=== PATIENT | female | born 1990 | race Caucasian/White ===

== ENCOUNTER → 2018-08-17 | Outpatient (CLI) | payer BC ==
[~2018-08-17] MED LIST: NO HOME MEDICATIONS
== END ==
LOC: BHSO 11:02
DX: F31.81 Bipolar II disorder (principal)

== ENCOUNTER → 2018-10-18 | Outpatient (CLI) | payer BC | LOC: BHSO 14:57 | DX: F31.81 Bipolar II disorder (principal) | CPT/HCPCS: G0463 ==

== ENCOUNTER 2021-03-27 13:34 | Outpatient (RCR) | payer OTHER | END 2021-03-28 | disposition still patient (30) | LOC: WSOH | DX: Z77.21 Contact with and (suspected) exposure to potentially hazardous body fluids (principal); W46.0XXA Contact with hypodermic needle, initial encounter; E03.9 Hypothyroidism, unspecified; F41.8 Other specified anxiety disorders; F90.9 Attention-deficit hyperactivity disorder, unspecified type; M32.9 Systemic lupus erythematosus, unspecified; Y99.0 Civilian activity done for income or pay ==

== ENCOUNTER → 2021-08-30 | Outpatient (CLI) | payer OTHER ==
[2021-08-30 08:30] LABS: ALBUMIN 4.1 gm/dL (3.5-5.0); BILIRUBIN,TOTAL 0.6 mg/dL (0.2-1.2); CALCIUM 9.1 mg/dL (8.4-10.2); CHOLESTEROL RISK RATIO 4.6; CREATININE, serum 0.85 mg/dL (0.57-1.11); PROLACTIN 46.8 ng/mL (5.18-26.53); TOTAL PROTEIN 7.1 gm/dL (6.2-8.1)
== END ==
LOC: ZCOL.LAB 06:46
PROVIDERS: Psychiatry & Neurology Psychiatry
DX: F31.81 Bipolar II disorder (principal)

== ENCOUNTER → 2021-10-22 | Outpatient (CLI) | payer OTHER | LOC: ZCOL.LAB 04:39 | DX: F31.9 Bipolar disorder, unspecified (principal) ==

== ENCOUNTER → 2021-12-17 | Outpatient (CLI) | payer OTHER ==
[2021-12-17 07:24] LABS: COLLECTION METHOD CLEAN CATCH
[2021-12-17 07:25] LABS: ALBUMIN 4.2 gm/dL (3.5-5.0); BILIRUBIN,DIRECT 0.4 mg/dL (0.0-0.5); BILIRUBIN,TOTAL 0.9 mg/dL (0.2-1.2); C-REACTIVE PROTEIN 0.03 mg/dL (0.00-0.50); CALCIUM 9.3 mg/dL (8.4-10.2); CREATININE, serum 0.98 mg/dL (0.57-1.11); MAGNESIUM 2.1 mg/dL (1.6-2.6); POTASSIUM 3.4 mmol/L (3.5-4.5); THYROID STIMULATING HORMONE 0.786 uIU/mL (0.350-4.940); TOTAL PROTEIN 7.1 gm/dL (6.2-8.1)
[2021-12-17 07:26] LABS: BASO # 0.1 K/mm3 (0.0-0.2); BASO % 0.9 % (0.0-2.0); EOS # 0.2 K/mm3 (0.0-0.7); EOS % 3.7 % (0.0-4.0); GRAN # 2.7 K/mm3 (1.4-6.5); GRAN % 47.6 % (42.2-75.2); HEMATOCRIT 40.2 % (37.0-47.0); HEMOGLOBIN 13.6 g/dl (12.5-16.0); LYMPH % 35.8 % (20.0-51.0); MEAN CELL VOLUME 92 fl (80.0-100.0); MEAN CORPUSCULAR HEMOGLOBIN 31 pg (27-31); MEAN CORPUSCULAR HGB CONC 34 g/dl (33.0-37.0); MEAN PLATELET VOLUME 10.4 fl (7.4-10.4); MONO # 0.7 K/mm3 (0.1-0.6); MONO % 11.8 % (1.7-9.3); PLATELET COUNT 265 K/mm3 (130-400); RED BLOOD COUNT 4.36 M/mm3 (4.10-5.30); REDCELL DISTRIBUTION WIDTH-CV 12.2 % (11.5-14.5)
[2021-12-17 07:27] LABS: MONOSCREEN NEGATIVE
[2021-12-17 07:28] LABS: MUCOUS Present (NOT PRESENT); SQUAMOUS EPITHELIAL 0-2 /hpf (0-10); URINE APPEARANCE Clear (CLEAR/HAZY); URINE BACTERIA None Seen /hpf (NONE SEEN); URINE COLOR Yellow (YELLOW); URINE RBC 0-2 /hpf (0-2)
[2021-12-17 07:29] LABS: PH 6.5 (5-8); URINE GLUCOSE Negative (NEGATIVE); URINE KETONE TRACE (NEGATIVE); URINE NITRATE Negative (NEGATIVE); URINE PROTEIN(semi-quant) TRACE (NEGATIVE)
[2021-12-17 07:30] LABS: URINE BLOOD Negative (NEGATIVE)
== END ==
LOC: ZCOL.LAB 07:06
PROVIDERS: Internal Medicine
DX: R00.0 Tachycardia, unspecified (principal); R53.83 Other fatigue; E03.9 Hypothyroidism, unspecified

== ENCOUNTER → 2022-06-11 | Outpatient (CLI) | payer OTHER ==
[2022-06-11 15:48] LABS: HEMATOCRIT 41.7 % (37.0-47.0); HEMOGLOBIN 14.2 g/dl (12.5-16.0); MEAN CELL VOLUME 90 fl (80.0-100.0); MEAN CORPUSCULAR HEMOGLOBIN 31 pg (27-31); MEAN CORPUSCULAR HGB CONC 34 g/dl (33.0-37.0); MEAN PLATELET VOLUME 10.8 fl (7.4-10.4); PLATELET COUNT 308 K/mm3 (130-400); RED BLOOD COUNT 4.62 M/mm3 (4.10-5.30); REDCELL DISTRIBUTION WIDTH-CV 12.4 % (11.5-14.5)
[2022-06-11 16:08] LABS: ALBUMIN 4.4 gm/dL (3.5-5.0); BILIRUBIN,TOTAL 1.2 mg/dL (0.2-1.2); CALCIUM 9.3 mg/dL (8.4-10.2); CREATININE, serum 0.82 mg/dL (0.57-1.11); POTASSIUM 4.3 mmol/L (3.5-4.5); TOTAL PROTEIN 7.3 gm/dL (6.2-8.1)
[2022-06-11 16:27] LABS: THYROID STIMULATING HORMONE 2.293 uIU/mL (0.350-4.940)
[2022-06-11 16:45] LABS: BILIRUBIN,DIRECT 0.4 mg/dL (0.0-0.5)
[2022-06-11 22:26] LABS: HEPATITIS B SURFACE ANTIGEN Negative (Negative); HEPATITIS C VIRUS ANTIBODY Negative (Negative)
== END ==
LOC: COL.LAB 15:30
PROVIDERS: Internal Medicine
DX: M32.10 Systemic lupus erythematosus, organ or system involvement unspecified (principal)

== ENCOUNTER → 2023-03-15 | Outpatient (CLI) | payer OTHER | LOC: COL.RAD 08:00 | DX: R10.11 Right upper quadrant pain (principal); E07.9 Disorder of thyroid, unspecified; M32.9 Systemic lupus erythematosus, unspecified; A15.0 Tuberculosis of lung ==

== ENCOUNTER → 2023-04-15 | Outpatient (REF) | payer OTHER ==
[2023-04-15 16:42] LABS: HEMATOCRIT 39.1 % (37.0-47.0); MEAN CELL VOLUME 92 fl (80.0-100.0); MEAN CORPUSCULAR HEMOGLOBIN 31 pg (27-31); MEAN CORPUSCULAR HGB CONC 33 g/dl (33.0-37.0); MEAN PLATELET VOLUME 10.6 fl (7.4-10.4); PLATELET COUNT 238 K/mm3 (130-400); RED BLOOD COUNT 4.24 M/mm3 (4.10-5.30); REDCELL DISTRIBUTION WIDTH-CV 11.9 % (11.5-14.5)
== END ==
LOC: ZCOL.LAB 15:19
PROVIDERS: Advanced Practice Midwife
DX: Z01.419 Encounter for gynecological examination (general) (routine) without abnormal findings (principal)